=== PATIENT | male | born 1970 | race Caucasian/White ===

== ENCOUNTER → 2016-10-22 | Outpatient (REF) ==
--- NOTE | 2016-10-22 15:08 | REP ---
AP AND LATERAL CERVICAL SPINE, THREE VIEWS: HISTORY: Degenerative disc disease. There is no acute fracture or subluxation. The intervertebral discs are normal in height. IMPRESSION: There is no acute fracture or subluxation. Signed by Sean Otto MD 10/22/2016 03:18 P
--- NOTE | 2016-10-22 15:09 | REP ---
[facility] lumbosacral spine 10/22/2016 indication degenerative disc disease, disability Comparison: None Findings: There is no evidence of acute fracture or spondylolisthesis in the lumbosacral spine. Anterior marginal osteophytes are noted at T11-12, T12-L1, and L1-2. The disc spaces are maintained. SI joints are intact. Visualized portions of sacrum and upper coccyx are intact. Small bilateral lower pelvic calculi are suggestive of phleboliths Impression: No acute fracture or spondylolisthesis. Anterior bridging marginal osteophytes in the lower thoracic and upper lumbar spine as above. Signed by Claudine Marquez MD 10/22/2016 03:00 P
== END ==
LOC: M SMT 13:46
PROVIDERS: ATTEND Internal Medicine
DX: M50.30 Other cervical disc degeneration, unspecified cervical region (principal); M51.35 Other intervertebral disc degeneration, thoracolumbar region